=== PATIENT | female | born 1955 | race Hispanic/Latino ===

== ENCOUNTER 2016-07-17 10:30 | Inpatient (IN) | payer BC ==
[2016-07-17] MEDS ORDERED: ZOFRAN PO ONE ×2 (10:52→12:00)
[2016-07-17] MEDS ORDERED: ZOFRAN ODT ONE (10:55)
[2016-07-17 11:32] LABS: Basophils % (Auto) 0.2 % (0.0-1.8); Eosinophils % (Auto) 0.3 % (0.0-4.3); Hematocrit 43.9 % (30.3-42.9); Hemoglobin 15.2 gm/dl (10.1-14.3); Mean Corpuscular HGB Conc 35 % (30-34); Mean Corpuscular Hemoglobin 34 pg (28-32); Mean Corpuscular Volume 97 fl (79-97); Platelet Count 186 K/mm3 (140-440); Red Blood Count 4.52 M/mm3 (3.65-5.03); Red Cell Distribution Width 12.2 % (13.2-15.2); White Blood Count 3.8 K/mm3 (4.5-11.0)
[2016-07-17 11:36] LABS: Anion Gap 18 mmol/L; Blood Urea Nitrogen 14 mg/dL (7-17); Calcium 8.4 mg/dL (8.4-10.2); Carbon Dioxide 21 mmol/L (22-30); Chloride 101.1 mmol/L (98-107); Glucose 177 mg/dL (65-100); Potassium 4.3 mmol/L (3.6-5.0); Sodium 136 mmol/L (137-145)
--- NOTE | 2016-07-17 11:57 | Emergency Department Report ---
ED General Adult HPI - General Chief complaint: Dyspnea/Respdistress Stated complaint: TOBIAS Time Seen by Provider: 07/17/16 11:42 Source: patient Mode of arrival: Ambulatory Limitations: No Limitations - History of Present Illness Initial comments: Patient states that last night she measured her heart rate and found it to be 145 with her 's blood pressure and heart rate monitoring equipment. This morning her heart rate was normal but she felt short of breath nauseated and was concerned that she "might have a heart attack because women present atypically". She states that she has [facility] and no one on this side of town except sit. She sees a full stack net developer in [facility]. She states that she was taken off her medications for atrial fibrillation because "my heart rate plummeted". She is somewhat anxious at this time. She denies any recent travel, leg pain, swelling. She is not dyspneic at this time. She denies chest pain pressure or tightness. Patient states that she's never had a cardiac catheterization. However she's had no echocardiogram and a stress test last performed 2 years ago she states. -: Gradual Consistency: intermittent Improves with: none Worsens with: none Associated Symptoms: denies other symptoms Treatments Prior to Arrival: none - Related Data Home Medications Medication Instructions Recorded Confirmed Last Taken Sulindac 200 mg PO BID 01/23/15 07/17/16 07/16/16 hydrALAZINE [Apresoline] 50 mg PO BID 07/17/16 07/17/16 Unknown Previous Rx's Medication Instructions Recorded Last Taken Type Clopidogrel [Plavix] 75 mg PO QDAY tablet 01/24/15 07/16/16 Rx Losartan [Cozaar] 100 mg PO QDAY tablet 01/24/15 07/16/16 Rx Allergies Allergy/AdvReac Type Severity Reaction Status Date / Time Sulfa (Sulfonamide Allergy Rash Verified 01/23/15 21:33 Antibiotics) ED Review of Systems ROS: Stated complaint: TOBIAS Other details as noted in HPI Constitutional: denies: chills, fever Eyes: denies: eye pain, eye discharge, vision change ENT: denies: ear pain, throat pain Respiratory: shortness of breath. denies: cough, SOB at rest, wheezing Cardiovascular: denies: chest pain, palpitations Endocrine: no symptoms reported Gastrointestinal: nausea. denies: abdominal pain, diarrhea Genitourinary: denies: urgency, dysuria, discharge Musculoskeletal: denies: back pain, joint swelling, arthralgia Skin: denies: rash, lesions Neurological: denies: headache, weakness, paresthesias Psychiatric: denies: anxiety, depression Hematological/Lymphatic: denies: easy bleeding, easy bruising ED Past Medical Hx - Past Medical History Previous Medical History?: Yes Hx Hypertension: Yes Additional medical history: A. fib - Surgical History Past Surgical History?: Yes Additional Surgical History: hysterectomy - Social History Smoking Status: Former Smoker Substance Use Type: Prescribed - Medications Home Medications: Home Medications Medication Instructions Recorded Confirmed Last Taken Type Sulindac 200 mg PO BID 01/23/15 07/17/16 07/16/16 History Clopidogrel [Plavix] 75 mg PO QDAY tablet 01/24/15 07/17/16 07/16/16 Rx Losartan [Cozaar] 100 mg PO QDAY tablet 01/24/15 07/17/16 07/16/16 Rx hydrALAZINE [Apresoline] 50 mg PO BID 07/17/16 07/17/16 Unknown History ED Physical Exam - General Limitations: No Limitations General appearance: alert, in no apparent distress - Head Head exam: Present: atraumatic, normocephalic - Eye Eye exam: Present: normal appearance, EOMI. Absent: scleral icterus - ENT ENT exam: Present: mucous membranes moist - Neck Neck exam: Present: normal inspection - Respiratory Respiratory exam: Present: normal lung sounds bilaterally. Absent: respiratory distress - Cardiovascular Cardiovascular Exam: Present: regular rate, normal rhythm. Absent: systolic murmur, diastolic murmur, rubs, gallop - GI/Abdominal GI/Abdominal exam: Present: soft, normal bowel sounds. Absent: distended, tenderness, guarding, rebound, rigid, organomegaly, mass - Extremities Exam Extremities exam: Present: normal inspection, normal capillary refill. Absent: full ROM, tenderness, pedal edema, joint swelling, calf tenderness - Back Exam Back exam: Present: normal inspection - Neurological Exam Neurological exam: Present: alert, oriented X3, CN II-XII intact. Absent: motor sensory deficit - Psychiatric Psychiatric exam: Present: normal affect, normal mood - Skin Skin exam: Present: warm, dry, intact, normal color. Absent: rash ED Course Vital Signs 07/17/16 07/17/16 07/17/16 10:38 10:40 10:43 Temperature 97.5 F L Pulse Rate 60 Respiratory 18 Rate Blood Pressure 132/70 O2 Sat by Pulse 97 97 97 Oximetry 07/17/16 07/17/16 10:45 11:05 Temperature Pulse Rate 59 L 60 Respiratory 18 Rate Blood Pressure 132/70 O2 Sat by Pulse 96 Oximetry - Reevaluation(s) Reevaluation #1: Discussed with Dr. Conde. I added coags and a d-dimer. Patient will be admitted to the hospitalist service for further care and evaluation. 07/17/16 12:02 ED Medical Decision Making - Lab Data Result diagrams: 07/17/16 11:03 07/17/16 11:03 - EKG Data -: EKG Interpreted by Me EKG shows normal: sinus rhythm, axis, intervals, ST-T waves Rate: normal - EKG Data QS in V2. 07/17/16 12:04 Critical care attestation.: If time is entered above; I have spent that time in minutes in the direct care of this critically ill patient, excluding procedure time. ED Disposition Clinical Impression: AF (paroxysmal atrial fibrillation) Dyspnea Qualifiers: Dyspnea type: unspecified Qualified Code(s): R06.00 - Dyspnea, unspecified Disposition: OP ADMITTED IP TO THIS HOSP Is pt being admited?: Yes Does the pt Need Aspirin: Yes Condition: Stable Referrals: PRIMARY CARE,MD [Primary Care Provider] - 3-5 Days Time of Disposition: 12:06
[2016-07-17] MEDS ORDERED: BABY ASPIRIN PO ONE (12:06)
--- NOTE | 2016-07-17 12:14 | XRay Report ---
Single view chest: Compared to 01/23/15. History: Shortness of breath. Findings: Cardiomegaly. Trachea is midline. No consolidation, pneumothorax or pleural effusion. Impression: Cardiomegaly. No acute lung kidneys
[2016-07-17 12:42] LABS: Alanine Aminotransferase 17 units/L (7-56); Albumin 3.5 g/dL (3.9-5); Albumin/Globulin Ratio 1.3 %; Alkaline Phosphatase 68 units/L (35-129); Bilirubin,Direct < 0.2 mg/dL (0-0.2); Bilirubin,Total 0.5 mg/dL (0.1-1.2); Total Protein 6.3 g/dL (6.3-8.2)
[2016-07-17 12:46] LABS: INR 0.95 (0.87-1.13)
[2016-07-17 12:47] LABS: Partial Thromboplastin Time 32.4 Sec. (24.2-36.6)
--- NOTE | 2016-07-17 12:56 | History and Physical Report ---
History of Present Illness Date of examination: 07/17/16 History of present illness: Patient states that last night she measured her heart rate and found it to be 145 with her 's blood pressure and heart rate monitoring equipment. This morning her heart rate was normal but she felt short of breath nauseated and was concerned that she "might have a heart attack because women present atypically". She states that she has [facility] care and no one on this side of town except sit. She sees a sleeve setter in [facility]. She states that she was taken off her medications for atrial fibrillation because "my heart rate plummeted". She is somewhat anxious at this time. She denies any recent travel, leg pain, swelling. She is not dyspneic at this time. She denies chest pain pressure or tightness. Patient states that she's never had a cardiac catheterization. However she's had no echocardiogram and a stress test last performed 2 years ago she states. Past History Past Medical History: atrial fib, hypertension Medications and Allergies Allergies Allergy/AdvReac Type Severity Reaction Status Date / Time Sulfa (Sulfonamide Allergy Rash Verified 01/23/15 21:33 Antibiotics) Home Medications Medication Instructions Recorded Confirmed Last Taken Type Sulindac 200 mg PO BID 01/23/15 07/17/16 07/16/16 History Clopidogrel [Plavix] 75 mg PO QDAY tablet 01/24/15 07/17/16 07/16/16 Rx Losartan [Cozaar] 100 mg PO QDAY tablet 01/24/15 07/17/16 07/16/16 Rx hydrALAZINE [Apresoline] 50 mg PO BID 07/17/16 07/17/16 Unknown History Review of Systems Cardiovascular: chest pain, rapid/irregular heart beat Exam - Constitutional Vitals: Temp Pulse Resp BP Pulse Ox 97.5 F L 61 15 116/65 95 07/17/16 10:38 07/17/16 12:30 07/17/16 12:30 07/17/16 12:30 07/17/16 12:30 General appearance: Present: no acute distress - EENT Eyes: Present: PERRL, EOM intact ENT: hearing intact, clear oral mucosa - Neck Neck: Present: supple, normal ROM - Respiratory Respiratory effort: normal Respiratory: bilateral: CTA - Cardiovascular Rhythm: regular Heart Sounds: Present: S1 & S2 - Extremities Extremities: no ischemia, No edema - Abdominal General gastrointestinal: Present: soft, non-tender, non-distended, normal bowel sounds - Musculoskeletal Musculoskeletal: strength equal bilaterally - Psychiatric Psychiatric: appropriate mood/affect, intact judgment & insight - Neurologic Neurologic: CNII-XII intact, moves all extremities Results - Labs CBC & Chem 7: 07/17/16 11:03 07/17/16 11:03 Labs: Laboratory Last Values WBC 3.8 K/mm3 (4.5-11.0) L 07/17/16 11:03 RBC 4.52 M/mm3 (3.65-5.03) 07/17/16 11:03 Hgb 15.2 gm/dl (10.1-14.3) H 07/17/16 11:03 Hct 43.9 % (30.3-42.9) H 07/17/16 11:03 MCV 97 fl (79-97) 07/17/16 11:03 MCH 34 pg (28-32) H 07/17/16 11:03 MCHC 35 % (30-34) H 07/17/16 11:03 RDW 12.2 % (13.2-15.2) L 07/17/16 11:03 Plt Count 186 K/mm3 (140-440) 07/17/16 11:03 Lymph % (Auto) 28.0 % (13.4-35.0) 07/17/16 11:03 [place] % (Auto) 12.1 % (0.0-7.3) H 07/17/16 11:03 Eos % (Auto) 0.3 % (0.0-4.3) 07/17/16 11:03 Baso % (Auto) 0.2 % (0.0-1.8) 07/17/16 11:03 Lymph # 1.1 K/mm3 (1.2-5.4) L 07/17/16 11:03 [place] # 0.5 K/mm3 (0.0-0.8) 07/17/16 11:03 Eos # 0.0 K/mm3 (0.0-0.4) 07/17/16 11:03 Baso # 0.0 K/mm3 (0.0-0.1) 07/17/16 11:03 Seg Neutrophils % 59.4 % (40.0-70.0) 07/17/16 11:03 Seg Neutrophils # 2.2 K/mm3 (1.8-7.7) 07/17/16 11:03 PT 12.6 Sec. (12.2-14.9) 07/17/16 12:19 INR 0.95 (0.87-1.13) 07/17/16 12:19 APTT 32.4 Sec. (24.2-36.6) 07/17/16 12:19 Sodium 136 mmol/L (137-145) L 07/17/16 11:03 Potassium 4.3 mmol/L (3.6-5.0) 07/17/16 11:03 Chloride 101.1 mmol/L (98-107) 07/17/16 11:03 Carbon Dioxide 21 mmol/L (22-30) L 07/17/16 11:03 Anion Gap 18 mmol/L 07/17/16 11:03 BUN 14 mg/dL (7-17) 07/17/16 11:03 Creatinine 0.7 mg/dL (0.7-1.2) 07/17/16 11:03 Estimated GFR > 60 ml/min 07/17/16 11:03 BUN/Creatinine Ratio 20.00 % 07/17/16 11:03 Glucose 177 mg/dL (65-100) H 07/17/16 11:03 Calcium 8.4 mg/dL (8.4-10.2) 07/17/16 11:03 Total Bilirubin 0.5 mg/dL (0.1-1.2) 07/17/16 11:03 Direct Bilirubin < 0.2 mg/dL (0-0.2) 07/17/16 11:03 AST 22 units/L (5-40) 07/17/16 11:03 ALT 17 units/L (7-56) 07/17/16 11:03 Alkaline Phosphatase 68 units/L (35-129) 07/17/16 11:03 Troponin T < 0.010 ng/mL (0.00-0.029) 07/17/16 11:03 NT-Pro-B Natriuret Pep 414.5 pg/mL (0-900) 07/17/16 11:03 Total Protein 6.3 g/dL (6.3-8.2) 07/17/16 11:03 Albumin 3.5 g/dL (3.9-5) L 07/17/16 11:03 Albumin/Globulin Ratio 1.3 % 07/17/16 11:03 Assessment and Plan - Patient Problems (1) AF (paroxysmal atrial fibrillation) Current Visit: Yes Status: Chronic Plan to address problem: Normal sinus rhythm at this time, Cardiology consult, Follow TSH (2) Chest pain Current Visit: No Status: Acute Qualifiers: Chest pain type: C Plan to address problem: Cardiology consult, ASA, 2D Echo, Follow Troponin, Patient states that she can't take Beta-yogesh
[2016-07-17] MEDS ORDERED: SULINDAC 200 MG PO SCH (13:00)
[2016-07-17] MEDS ORDERED: PLAVIX PO SCH (13:00)
[2016-07-17] MEDS ORDERED: ZOFRAN IV PRN (13:01)
[2016-07-17] MEDS ORDERED: MILK OF MAGNESIA PO PRN (13:01)
[2016-07-17] MEDS ORDERED: DULCOLAX PR PRN (13:01)
[2016-07-17] MEDS ORDERED: PERCOCET 5/325 PO PRN (13:01)
[2016-07-17] MEDS ORDERED: TYLENOL PO PRN (13:01)
[2016-07-17] MEDS ORDERED: SODIUM CHLORIDE FLUSH SYRINGE 10 ML IV PRN (13:01)
--- NOTE | 2016-07-17 13:06 | Admit Criteria Form ---
Admission Criteria Documentation: CARDIOLOGY GRG Clinical Indications for Admission to Inpatient Care ( Place 'X' for any and all applicable criteria): Hospital admission is needed for appropriate care of the patient because of ANY ONE of the following (1): [ ] I. Hemodynamic instability as indicated by ALL of the following (1)(2)(3) (4)(5) [ ]a) Vital signs or other findings not as expected for chronic patient condition or baseline [ ]b) Instability indicated by ANY ONE of the following: [ ]i) Hypotension [ ]ii) Symptomatic Tachycardia unresponsive to treatment ( e.g., analgesia, fluids, sedation as indicated) [ ]iii) Inadequate perfusion indicated by ANY ONE of the following: [ ] 1) Lactic acidosis (> 2 mmol/L) [ ] 2) New abnormal capillary refill (> 3 seconds) [ ] 3) Reduced urine output [ ] 4) New altered mental status [ ]iv) Orthostatic vital sign changes unresponsive to treatment (e.g., fluids) [ ]v) IV inotropic or vasopressor medication required to maintain adequate blood pressure or perfusion [ ] II. Severe heart failure as indicated by ANY ONE of the following(17)(18) [ ]a) Respiratory distress [ ]b) Hypotension [ ]c) Anasarca (refractory to outpatient therapy) [ ]d) Cardiac arrhythmias of immediate concern [ ]e) Myocardial ischemia [ ] III. Cardiac arrhythmias or findings of immediate concern indicated by ANY ONE of the following (19)(20): [ ] a) Heart rhythms that are inherently dangerous or unstable indicated by ANY ONE of the following (21)(22)(23): [ ] i) Resuscitated ventricular fibrillation or cardiac arrest [ ] ii) Ventricular escape rhythm [ ] iii) Sustained ventricular tachycardia (30 seconds or more of ventricular rhythm at greater than 100 beats per minute) [ ] iv) Nonsustained ventricular tachycardia and ANY ONE of the following: [ ] 1) Suspected cardiac ischemia as cause or consequence of ventricular tachycardia [ ] 2) In setting of acute myocarditis [ ] b) Unstable cardiac conduction defects indicated by ANY ONE of the following(23)(24)(25) [ ] i) Type II second-degree atrioventricular block [ ]ii) Third-degree atrioventricular block [ ]iii) New-onset left bundle branch block with suspected myocardial ischemia [ ]c) Any heart rhythm and ANY ONE of the following (21)(22)(26)(27) (28) [ ] i) Continuous long-term ECG monitoring needed (e.g., initiation of drug requiring monitoring for more than 24 hours) [ ] ii) Patient has automatic implanted cardioverter defibrillator that is repeatedly firing, malfunctioning, or in need of immediate adjustment of settings beyond the scope of ambulatory or observation care [ ]d) Heart rhythms of concern due to ANY ONE of the following: [ ] i) Hypotension [ ] ii) Respiratory distress [ ] iii) Association with other significant symptoms (e.g., bradycardia with syncope or ongoing dizziness, supraventricular tachycardia with chest pain (14)(15)(17) [ ] IV. Monitoring for cardiac contusion beyond the scope of observation care needed [A](30)(31)(32) [ ] V. Surgical or device complication (e.g., valve replacement complication , pacemaker dysfunction) (35)(41)(44)(45)(46) [ ] . Inpatient palliative care needed. [B](49) Also use Inpatient Palliative Care Criteria [ ] VII. Nonbacterial thrombotic (marantic) endocarditis (36)(43)(47)(48) [X ] VIII. Cardiology condition, symptom, or finding for which emergency and observation care has failed or are not considered appropriate. [ ] IX. Acute valvular disease requiring inpatient as indicated by ANY ONE of the following (41) [ ]a) Acute valvular regurgitation (42) [ ]b) Noninfectious valvulitis (43) [ ]c) Obstructive valve thrombosis [ ]d) Paravalvular leak [ ]e) Other significant valvular disorder remaining after emergency or observation level of care (as appropriate) [ ]X. Pericardial disease requiring inpatient treatment as indicated by ANY ONE of the following (33)(34)(35)(36)(37) [ ]a) Suspected tamponade (38)(39)(40) [ ]b) Hemopericardium [ ]c) Other significant pericardial disorder remaining after emergency or observation level of care (as appropriate) [ ] XI. Cardiac ischemia beyond scope of emergency and observation care. [ ] XII. Hypertension requiring inpatient treatment as indicated by ANY ONE of the following (6)(7)(8) [ ]a) SBP greater than 220 mm Hg or DBP greater than 120 mmHg despite treatment [ ]b) SBP greater than 140 mm Hg or DBP greater than 100 mm Hg with evidence of acute end organ damage as indicated by ANY ONE of the following [ ] i) Altered mental status [ ] ii) Acute renal failure as indicated by new onset of ANY ONE of the following (9)(10)(11)(12)(13) [ ]1) 3-fold rise in serum creatinine from baseline [ ]2) Serum creatinine greater than 4 mg/dL ( 354 micromoles/L) with acute rise greater than 0.5 mg/dL (44.2 micromoles/L) [ ]3) Reduction of more than 75% in estimated glomerular filtration rate from baseline [ ]4) Estimated glomerular filtration rate less than 35 mL/min/1.73m2 (0.59 mL/sec/1.73m2) in child up to 18 years of age [ ]5) Cessation of urine output indicated by ALL of the following [ ]A. Adequate volume status [ ]B. Inadequate urine output as indicated by ANY ONE of the following [ ]a. Urine output less than 0.3 mL/kg/hr for 24 hours [ ]b. Anuria (urine output less than 0.1 mL/kg/hr) for 12 hours [ ] iii) Aortic dissection [ ] iv) Myocardial Ischemia [ ] v) Left ventricular heart failure [ ]vi) Retinal Hemorrhage [ ]vii) Other significant finding [ ]c) Hypertension in child requiring inpatient treatment as indicated by ALL of the following(14)(15)(16) [ ] i) Outpatient treatment not effective, not available, or not appropriate [ ]ii) SBP or DBP greater than 95th percentile for age [ ]iii) Evidence of acute end organ damage as indicated by ANY ONE of the following [ ]1) Altered mental status [ ]2) Acute renal failure as indicated by new onset of ANY ONE of the following(9)(10)(11)(12)(13) [ ]A. 3-fold rise in serum creatinine from baseline [ ]B. Serum creatinine greater than 4 mg/dL (354 micromoles/L) with acute rise greater than 0.5 mg/dL (44.2 micromoles/L) [ ]C. Reduction of more than 75% in estimated glomerular filtration rate from baseline [ ]D. Estimated glomerular filtration rate less than 35 mL/min/1.73m2 (0.59 mL/sec/1.73m2) in child up to 18 years of age [ ]E. Cessation of urine output indicated by ALL of the following [ ]a. Adequate volume status [ ]b. Inadequate urine output as indicated by ANY ONE of the following [ ]i) Urine output less than 0.3 mL/kg/hr for 24 hours [ ]ii) Anuria ( urine output less than 0.1 mL/kg/hr) for 12 hours [ ]3) Severe headache [ ]4) Visual disturbance [ ]5) Retinal hemorrhage [ ]6) Other significant finding [ ]XIII. Complications of transplanted heart indicated by ANY ONE of the following(61): [ ]a) Acute graft rejection requiring inpatient management (eg, intravenous immunosuppression)(62)(63) [ ]b) Acute graft heart failure indicated by ANY ONE of the following(64): [ ]i) Hemodynamic instability [ ]ii) Cardiac arrhythmias of immediate concern [ ]iii) Pulmonary edema that is very severe (eg, mechanical ventilation needed, imminent or likely, need for 100% oxygen to keep oxygen saturation above 90%) [ ]iv) Pulmonary edema that is persistent as indicated by ALL of the following: [ ]1) New need for oxygen therapy to keep oxygen saturation above 90% (or increased FiO2 need from baseline) [ ]2) Has not improved sufficiently with emergency department or observation care IV diuretics or other heart failure treatments[E] [ ]v) Altered mental status that is severe or persistent [ ]vi) Increased creatinine (new on laboratory test) with reduction of more than 50% in estimated glomerular filtration rate from baseline [ ]vii) Progressively (ongoing) rising creatinine (known from past laboratory test) with reduction of more than 25% in estimated glomerular filtration rate from baseline [ ]viii) Acute renal failure [ ]ix) Acute peripheral ischemia (eg, examination shows pulseless, cool, mottled, or cyanotic extremity) [ ]x) Pulmonary artery catheter monitoring needed [ ]xi) Other sign or symptom of heart failure requiring inpatient treatment (ie, too severe or not responsive to outpatient and observation care treatment) [ ]c) Infection requiring inpatient management (eg, Hemodynamic instability, need for intravenous antimicrobial treatment)(66)(67)(68)(69)(70) [ ]d) Cardiac allograft vasculopathy requiring inpatient management ( eg evidence of cardiac ischemia)(71) [ ]e) Other complication of transplanted heart (eg, stroke, severe pulmonary hypertension, severe valvular dysfunction) requiring inpatient management(72) The original [facility] [employer] content created by [facility] has been revised. The portions of the content which have been revised are identified through the use of italic text or in bold, and [facility] has neither reviewed nor approved the modified material. All other unmodified content is copyright [facility] [employer]. Please see references footnoted in the original [facility] [employer] edition 2016 Admission Criteria Met: Yes
[2016-07-17] MEDS: COZAAR PO SCH (13:53)
[2016-07-17] MEDS: APRESOLINE PO SCH ×2 (13:53→22:09)
[2016-07-17] MEDS ORDERED: NACL 0.9% 1000 ML 1,000 ML IV SCH (14:00)
[2016-07-17] MEDS ORDERED: LOVENOX SUB-Q SCH (14:00)
[2016-07-17 15:04] LABS: Creatine Kinase MB 1.4 ng/mL (0.0-4.0)
[2016-07-17 15:07] LABS: Creatine Kinase 41 units/L (30-135)
--- NOTE | 2016-07-17 15:13 | Consultation ---
History of Present Illness Consult date: 07/17/16 Consult reason: chest pain History of present illness: This is a 61yr old woman who reports a history of Hypertension and paroxysmal Atrial fibrillation on plavix therapy. Patient reports GI upset with aspirin. Anticoagulation with warfarin therapy was refused in the past. She has had extensive prior cardiac workup. In 2007, she underwent a cardiac cath that revealed normal coronaries, EF 50-55%. An echocardiogram done 2013 shows a normal LV systolic function, EF 60-65%. Patient was brought in by EMS now admitted with a suspected episode of paroxysmal atrial fibrillation. She reports has been taking antibiotics for several days for coughs and congestion. Shortly after waking up this morning patient reports dizziness and not being able to breath. She denies any chest pain. There was no syncope. Workup in the ED with a chest x-ray reports no acute process. Her presenting ECG shows a sinus rhythm with a first degree AV block. Cardiac consultation requested. Of note, patient reports last night she had an episode of palpitations that was short lived. She reports her hall manager recently took her off diltiazem and propanolol due to hypotension and severe bradycardia. Past History Past Medical History: atrial fib, hypertension Medications and Allergies Allergies Allergy/AdvReac Type Severity Reaction Status Date / Time Sulfa (Sulfonamide Allergy Rash Verified 01/23/15 21:33 Antibiotics) Home Medications Medication Instructions Recorded Confirmed Last Taken Type Sulindac 200 mg PO BID 01/23/15 07/17/16 07/16/16 History Clopidogrel [Plavix] 75 mg PO QDAY tablet 01/24/15 07/17/16 07/16/16 Rx Losartan [Cozaar] 100 mg PO QDAY tablet 01/24/15 07/17/16 07/16/16 Rx hydrALAZINE [Apresoline] 50 mg PO BID 07/17/16 07/17/16 Unknown History Active Meds: Active Medications Acetaminophen (Tylenol) 650 mg PO Q4H PRN PRN Reason: Pain MILD(1-3)/Fever >100.5/AVILA Aspirin (Ecotrin) 325 mg PO QDAY ANNE MARIE Bisacodyl (Dulcolax) 10 mg VT QDAY PRN PRN Reason: Constipation unrelieved by MOM Clopidogrel Bisulfate (Plavix) 75 mg PO QDAY [facility] Last Admin: 07/17/16 13:52 Dose: 75 mg Enoxaparin Sodium (Lovenox) 30 mg SUB-Q QDAY [facility] Last Admin: 07/17/16 13:54 Dose: 30 mg Hydralazine HCl (Apresoline) 50 mg PO BID [facility] Last Admin: 07/17/16 13:53 Dose: 50 mg Sodium Chloride (Nacl 0.9% 1000 Ml) 1,000 mls @ 100 mls/hr IV DIRECT [facility] Losartan Potassium (Cozaar) 100 mg PO QDAY [facility] Last Admin: 07/17/16 13:53 Dose: 100 mg Magnesium Hydroxide (Milk Of Magnesia) 30 ml PO Q4H PRN PRN Reason: Constipation Miscellaneous Medication (Sulindac [Sulindac]) 200 mg PO BID [facility] Last Admin: 07/17/16 13:29 Dose: Not Given Ondansetron HCl (Zofran) 4 mg IV Q8H PRN PRN Reason: N/V unrelieved by Reglan Oxycodone/Acetaminophen (Percocet 5/325) 1 tab PO Q6H PRN PRN Reason: Pain, Moderate (4-6) Sodium Chloride (Sodium Chloride Flush Syringe 10 Ml) 10 ml IV PRN PRN PRN Reason: LINE FLUSH Physical Examination Vital Signs Temp Pulse Resp BP Pulse Ox 97.5 F L 60 18 132/70 97 07/17/16 10:38 07/17/16 10:38 07/17/16 10:38 07/17/16 10:38 07/17/16 10:38 General appearance: no acute distress HEENT: Positive: PERRL Neck: Positive: trachea midline Cardiac: Positive: Reg Rate and Rhythm Lungs: Positive: Decreased Breath Sounds Neuro: Positive: Grossly Intact Extremities: Absent: edema Results 07/17/16 11:03 07/17/16 11:03 Cardiac Enzymes 07/17/16 Range/Units 13:58 CK-MB (CK-2) 1.4 (0.0-4.0) ng/mL Assessment and Plan Hx of Paroxysmal afib on plavix. Patient refused anticoagulation with warfarin in the past. Hypertension [facility] in 2007 revealed normal coronaries, EF 50-55%. An echocardiogram done 2013 shows a normal LV systolic function, EF 60-65%.
[2016-07-17 18:46] LABS: Creatine Kinase MB 1.4 ng/mL (0.0-4.0)
[2016-07-17 18:47] LABS: Creatine Kinase 40 units/L (30-135)
[2016-07-17 20:24] LABS: Creatine Kinase MB 1.3 ng/mL (0.0-4.0)
[2016-07-17 20:25] LABS: Creatine Kinase 38 units/L (30-135)
[2016-07-18 06:20] LABS: Hematocrit 39.8 % (30.3-42.9); Hemoglobin 13.5 gm/dl (10.1-14.3); Mean Corpuscular HGB Conc 34 % (30-34); Mean Corpuscular Hemoglobin 33 pg (28-32); Mean Corpuscular Volume 98 fl (79-97); Platelet Count 162 K/mm3 (140-440); Red Blood Count 4.05 M/mm3 (3.65-5.03); White Blood Count 4.1 K/mm3 (4.5-11.0)
[2016-07-18 07:11] LABS: Alanine Aminotransferase 16 units/L (7-56); Albumin 3.6 g/dL (3.9-5); Albumin/Globulin Ratio 1.6 %; Alkaline Phosphatase 60 units/L (35-129); BUN/Creatinine Ratio 21.25; Bilirubin,Total 0.4 mg/dL (0.1-1.2); Blood Urea Nitrogen 17 mg/dL (7-17); Calcium 8.3 mg/dL (8.4-10.2); Carbon Dioxide 28 mmol/L (22-30); Glucose 131 mg/dL (65-100); Potassium 4.6 mmol/L (3.6-5.0); Sodium 140 mmol/L (137-145); Total Protein 5.9 g/dL (6.3-8.2)
[2016-07-18 07:19] LABS: Anion Gap 16 mmol/L
[2016-07-18] MEDS ORDERED: LEXISCAN IV ONE ×2 (08:21→08:29)
[2016-07-18 08:48] LABS: Basophils % (Manual) 0 % (0.0-1.8); Blastocytes % (Manual) 0 %; Diff Status Complete; Eosinophils % (Manual) 0 % (0.0-4.3); RBC Morphology Normal
[2016-07-18] MEDS ORDERED: ECOTRIN PO SCH (10:00)
--- NOTE | 2016-07-18 10:51 | Treadmill Report ---
INDICATION: Chest pain. ORDERING PHYSICIAN: Zoie Roberts MD FINDINGS: There is no scintigraphic evidence of myocardial ischemia. The left ventricle is normal in size. There is normal wall motion and wall thickening noted on gated imaging. The left ventricular ejection fraction is measured at 52%. CONCLUSION: 1. This is a normal perfusion scan. 2. Normal left ventricular size and systolic function. 3. This is a low risk myocardial perfusion scan associated with 1 year mortality of less than 1%. [facility]# [id number] EULOGIO/LAN
--- NOTE | 2016-07-18 11:09 | Progress Note ---
Assessment and Plan Hx of Paroxysmal afib patient is agreeable to start coumadin therapy start warfarin 5 mg po daily discontinue asa and plavix follow-up INR testing on Thursday with PCP Hypertension Shortness of breath Normal MPI this admission [facility] in 2007 revealed normal coronaries, EF 50-55%. An echocardiogram done 2013 shows a normal LV systolic function, EF 60-65%. Recommendations: May go home cardiac carlos on warfarin 5 mg po daily Subjective Date of service: 07/18/16 Principal diagnosis: Shortness of breath Interval history: Patient underwent a lexiscan today - no complications Objective Vital Signs Temp Pulse Pulse Resp BP BP BP 07/18/16 04:35 98.2 F 66 16 132/62 07/18/16 00:59 18 07/18/16 00:30 98.7 F 68 18 124/70 07/17/16 22:47 07/17/16 20:35 98.9 F 65 18 128/65 07/17/16 20:10 82 07/17/16 16:07 97.7 F 79 70 16 07/17/16 15:27 97.5 F L 07/17/16 15:05 79 18 145/78 07/17/16 13:53 64 137/70 Pulse Ox 07/18/16 04:35 94 07/18/16 00:59 07/18/16 00:30 97 07/17/16 22:47 96 07/17/16 20:35 96 07/17/16 20:10 07/17/16 16:07 95 07/17/16 15:27 07/17/16 15:05 100 07/17/16 13:53 - Physical Examination HEENT: Positive: PERRL Neck: Positive: trachea midline Cardiac: Positive: Reg Rate and Rhythm Lungs: Positive: Normal Exam Neuro: Positive: Grossly Intact Extremities: Absent: edema - Labs and Meds Cardiac Enzymes 07/17/16 07/17/16 07/17/16 Range/Units 13:58 15:40 19:43 AST (5-40) units/L CK-MB (CK-2) 1.4 1.4 1.3 (0.0-4.0) ng/mL 07/18/16 Range/Units 04:54 AST 21 (5-40) units/L CK-MB (CK-2) (0.0-4.0) ng/mL Lipids 07/17/16 Range/Units 13:58 Triglycerides 93 (2-149) mg/dL Cholesterol 165 (50-199) mg/dL HDL Cholesterol 49 (40-59) mg/dL Cholesterol/HDL Ratio 3.36 % CBC 07/18/16 Range/Units 04:54 WBC 4.1 L (4.5-11.0) K/mm3 RBC 4.05 (3.65-5.03) M/mm3 Hgb 13.5 (10.1-14.3) gm/dl Hct 39.8 (30.3-42.9) % Plt Count 162 (140-440) K/mm3 Comprehensive Metabolic Panel 07/18/16 Range/Units 04:54 Sodium 140 (137-145) mmol/L Potassium 4.6 (3.6-5.0) mmol/L Chloride 101.0 (98-107) mmol/L Carbon Dioxide 28 D (22-30) mmol/L BUN 17 (7-17) mg/dL Creatinine 0.8 (0.7-1.2) mg/dL Glucose 131 H (65-100) mg/dL Calcium 8.3 L (8.4-10.2) mg/dL AST 21 (5-40) units/L ALT 16 (7-56) units/L Alkaline Phosphatase 60 (35-129) units/L Total Protein 5.9 L (6.3-8.2) g/dL Albumin 3.6 L (3.9-5) g/dL
[2016-07-18] MEDS: APRESOLINE PO SCH ×2 (12:04→21:47)
[2016-07-18] MEDS: COZAAR PO SCH (12:05)
[2016-07-18] MEDS: LOVENOX SUB-Q SCH (12:05)
--- NOTE | 2016-07-18 14:22 | Progress Note ---
Assessment and Plan Assessment and plan: --Atypical chest pain to rule out acute coronary syndrome Patient underwent stress test which is negative for reversible ischemia and preserved left ventricular function ejection fraction --Paroxysmal atrial fibrillation Moderate control, continue beta blockers, closely monitor, normal coronaries on heart cath in 2007 Normal left ventricular function with ejection fraction of 60-65% in 2013 --Chronic anticoagulation with Coumadin Daily monitoring of INR to therapeutic goal between 2 and 3 --Hypertension; Moderate control closely monitor blood pressure synergist medications as needed --Elevated D dimers We will check CT angiogram of the chest and lower extremity to rule out PE and DVT Patient is already on Coumadin --DC planning. Case management --CODE STATUS; full code Closely monitor the patient and adjust the management as needed Follow CT angiogram of the chest and lower extremities if negative and if patient is stable can be discharged home tomorrow Medical records reviewed, plan of care discussed with the patient family member at the bedside and her nurse History Interval history: Patient seen and evaluated medical records reviewed Denies any chest pain or shortness of breath Denies headache or dizziness Underwent nuclear stress test which was negative for reversible ischemia today. Cardiology cleared for discharge However patient has elevated d-dimer's, we will check CT angiogram of the chest to rule out PE and lower extremity DVT Patient is already on Coumadin Patient denies any chest pain or shortness of breath Alert awake oriented 3 not in acute distress Hospitalist Physical - Constitutional Vitals: Temp Pulse Resp BP Pulse Ox 98.2 F 67 16 115/80 94 07/18/16 04:35 07/18/16 08:54 07/18/16 04:35 07/18/16 12:05 07/18/16 04:35 General appearance: Present: no acute distress, well-nourished - EENT Eyes: Present: PERRL, EOM intact - Neck Neck: Present: supple, normal ROM - Respiratory Respiratory effort: normal Respiratory: negative: rales, rhonchi, wheezing - Cardiovascular Rhythm: regular Heart Sounds: Present: S1 & S2 - Extremities Extremities: no ischemia, pulses intact, pulses symmetrical Peripheral Pulses: within normal limits - Abdominal General gastrointestinal: soft, non-tender, non-distended, normal bowel sounds - Integumentary Integumentary: Present: clear, warm - Psychiatric Psychiatric: appropriate mood/affect, cooperative - Neurologic Neurologic: CNII-XII intact, moves all extremities Results - Labs CBC & Chem 7: 07/18/16 04:54 07/18/16 04:54 Labs: Laboratory Last Values WBC 4.1 K/mm3 (4.5-11.0) L 07/18/16 04:54 RBC 4.05 M/mm3 (3.65-5.03) 07/18/16 04:54 Hgb 13.5 gm/dl (10.1-14.3) 07/18/16 04:54 Hct 39.8 % (30.3-42.9) 07/18/16 04:54 MCV 98 fl (79-97) H 07/18/16 04:54 MCH 33 pg (28-32) H 07/18/16 04:54 MCHC 34 % (30-34) 07/18/16 04:54 RDW 12.0 % (13.2-15.2) L 07/18/16 04:54 Plt Count 162 K/mm3 (140-440) 07/18/16 04:54 Lymph % (Auto) 28.0 % (13.4-35.0) 07/17/16 11:03 [place] % (Auto) 12.1 % (0.0-7.3) H 07/17/16 11:03 Eos % (Auto) 0.3 % (0.0-4.3) 07/17/16 11:03 Baso % (Auto) 0.2 % (0.0-1.8) 07/17/16 11:03 Lymph # 1.1 K/mm3 (1.2-5.4) L 07/17/16 11:03 [place] # 0.5 K/mm3 (0.0-0.8) 07/17/16 11:03 Eos # 0.0 K/mm3 (0.0-0.4) 07/17/16 11:03 Baso # 0.0 K/mm3 (0.0-0.1) 07/17/16 11:03 Add Manual Diff Complete 07/18/16 04:54 Total Counted 100 07/18/16 04:54 Seg Neutrophils % Test Conductor 07/18/16 04:54 Seg Neuts % (Manual) 33.0 % (40.0-70.0) L 07/18/16 04:54 Band Neutrophils % 3.0 % 07/18/16 04:54 Lymphocytes % (Manual) 52.0 % (13.4-35.0) H 07/18/16 04:54 Reactive Lymphs % (Man) 5.0 % 07/18/16 04:54 Monocytes % (Manual) 7.0 % (0.0-7.3) 07/18/16 04:54 Eosinophils % (Manual) 0 % (0.0-4.3) 07/18/16 04:54 Basophils % (Manual) 0 % (0.0-1.8) 07/18/16 04:54 Metamyelocytes % 0 % 07/18/16 04:54 Myelocytes % 0 % 07/18/16 04:54 Promyelocytes % 0 % 07/18/16 04:54 Blast Cells % 0 % 07/18/16 04:54 Nucleated RBC % Not Reportable 07/18/16 04:54 Seg Neutrophils # 2.2 K/mm3 (1.8-7.7) 07/17/16 11:03 Seg Neutrophils # Man 1.4 K/mm3 (1.8-7.7) L 07/18/16 04:54 Band Neutrophils # 0.1 K/mm3 07/18/16 04:54 Lymphocytes # (Manual) 2.1 K/mm3 (1.2-5.4) 07/18/16 04:54 Abs React Lymphs (Man) 0.2 K/mm3 07/18/16 04:54 Monocytes # (Manual) 0.3 K/mm3 (0.0-0.8) 07/18/16 04:54 Eosinophils # (Manual) 0.0 K/mm3 (0.0-0.4) 07/18/16 04:54 Basophils # (Manual) 0.0 K/mm3 (0.0-0.1) 07/18/16 04:54 Metamyelocytes # 0.0 K/mm3 07/18/16 04:54 Myelocytes # 0.0 K/mm3 07/18/16 04:54 Promyelocytes # 0.0 K/mm3 07/18/16 04:54 Blast Cells # 0.0 K/mm3 07/18/16 04:54 WBC Morphology Not Reportable 07/18/16 04:54 Hypersegmented Neuts Not Reportable 07/18/16 04:54 Hyposegmented Neuts Not Reportable 07/18/16 04:54 Hypogranular Neuts Not Reportable 07/18/16 04:54 Smudge Cells Not Reportable 07/18/16 04:54 Toxic Granulation Not Reportable 07/18/16 04:54 Toxic Vacuolation Not Reportable 07/18/16 04:54 Dohle Bodies Not Reportable 07/18/16 04:54 Pelger-Huet Anomaly Not Reportable 07/18/16 04:54 Nathalie Rods Not Reportable 07/18/16 04:54 Platelet Estimate Appears normal 07/18/16 04:54 Clumped Platelets Not Reportable 07/18/16 04:54 Plt Clumps, EDTA Not Reportable 07/18/16 04:54 Large Platelets Not Reportable 07/18/16 04:54 Giant Platelets Not Reportable 07/18/16 04:54 Platelet Satelliting Not Reportable 07/18/16 04:54 Plt Morphology Comment Not Reportable 07/18/16 04:54 RBC Morphology Normal 07/18/16 04:54 Dimorphic RBCs Not Reportable 07/18/16 04:54 Polychromasia Not Reportable 07/18/16 04:54 Hypochromasia Not Reportable 07/18/16 04:54 Poikilocytosis Not Reportable 07/18/16 04:54 Anisocytosis Not Reportable 07/18/16 04:54 Microcytosis Not Reportable 07/18/16 04:54 Macrocytosis Not Reportable 07/18/16 04:54 Spherocytes Not Reportable 07/18/16 04:54 Pappenheimer Bodies Not Reportable 07/18/16 04:54 Sickle Cells Not Reportable 07/18/16 04:54 Target Cells Not Reportable 07/18/16 04:54 Tear Drop Cells Not Reportable 07/18/16 04:54 Ovalocytes Not Reportable 07/18/16 04:54 Helmet Cells Not Reportable 07/18/16 04:54 [place] Bodies Not Reportable 07/18/16 04:54 [place] Rings Not Reportable 07/18/16 04:54 [place] Cells Not Reportable 07/18/16 04:54 Bite Cells Not Reportable 07/18/16 04:54 Crenated Cell Not Reportable 07/18/16 04:54 Elliptocytes Not Reportable 07/18/16 04:54 Acanthocytes (Spur) Not Reportable 07/18/16 04:54 Rouleaux Not Reportable 07/18/16 04:54 Hemoglobin C Crystals Not Reportable 07/18/16 04:54 Schistocytes Not Reportable 07/18/16 04:54 Malaria parasites Not Reportable 07/18/16 04:54 Roger Bodies Not Reportable 07/18/16 04:54 Hem Pathologist Commnt No 07/18/16 04:54 PT 12.6 Sec. (12.2-14.9) 07/17/16 12:19 INR 0.95 (0.87-1.13) 07/17/16 12:19 APTT 32.4 Sec. (24.2-36.6) 07/17/16 12:19 D-Dimer 345.34 ng/mlDDU (0-234) H 07/17/16 12:19 Sodium 140 mmol/L (137-145) 07/18/16 04:54 Potassium 4.6 mmol/L (3.6-5.0) 07/18/16 04:54 Chloride 101.0 mmol/L (98-107) 07/18/16 04:54 Carbon Dioxide 28 mmol/L (22-30) D 07/18/16 04:54 Anion Gap 16 mmol/L 07/18/16 04:54 BUN 17 mg/dL (7-17) 07/18/16 04:54 Creatinine 0.8 mg/dL (0.7-1.2) 07/18/16 04:54 Estimated GFR > 60 ml/min 07/18/16 04:54 BUN/Creatinine Ratio 21.25 % 07/18/16 04:54 Glucose 131 mg/dL (65-100) H 07/18/16 04:54 Calcium 8.3 mg/dL (8.4-10.2) L 07/18/16 04:54 Total Bilirubin 0.4 mg/dL (0.1-1.2) 07/18/16 04:54 Direct Bilirubin < 0.2 mg/dL (0-0.2) 07/17/16 11:03 AST 21 units/L (5-40) 07/18/16 04:54 ALT 16 units/L (7-56) 07/18/16 04:54 Alkaline Phosphatase 60 units/L (35-129) 07/18/16 04:54 Total Creatine Kinase 38 units/L (30-135) 07/17/16 19:43 CK-MB (CK-2) 1.3 ng/mL (0.0-4.0) 07/17/16 19:43 CK-MB (CK-2) Rel Index 3.4 (0-4) 07/17/16 19:43 Troponin T < 0.010 ng/mL (0.00-0.029) 07/17/16 19:43 NT-Pro-B Natriuret Pep 414.5 pg/mL (0-900) 07/17/16 11:03 Total Protein 5.9 g/dL (6.3-8.2) L 07/18/16 04:54 Albumin 3.6 g/dL (3.9-5) L 07/18/16 04:54 Albumin/Globulin Ratio 1.6 % 07/18/16 04:54 Triglycerides 93 mg/dL (2-149) 07/17/16 13:58 Cholesterol 165 mg/dL (50-199) 07/17/16 13:58 LDL Cholesterol Direct 98 mg/dL (50-130) 07/17/16 13:58 HDL Cholesterol 49 mg/dL (40-59) 07/17/16 13:58 Cholesterol/HDL Ratio 3.36 % 07/17/16 13:58
[2016-07-18] MEDS ORDERED: COUMADIN PO SCH ×2 (17:00)
[2016-07-18] MEDS: COUMADIN PO SCH (18:14)
[2016-07-19 07:04] LABS: INR 0.94 (0.87-1.13)
[2016-07-19] MEDS ORDERED: NACL ONE (09:17)
--- NOTE | 2016-07-19 10:56 | Cat Scan Report ---
CTA chest: History: Elevated d-dimer. Rule out PE, DVT. Findings: No evidence of acute aneurysm or pulmonary embolism. No pleural or pericardial effusion. No mediastinal mass or adenopathy. Scarring/discoid atelectasis left lower lobe. No consolidation or mass. Impression: No evidence of pulmonary embolism. Scarring or discoid atelectasis left lower lobe
[2016-07-19] MEDS: APRESOLINE PO SCH (11:06)
[2016-07-19] MEDS: COZAAR PO SCH (11:07)
[2016-07-19] MEDS: LOVENOX SUB-Q SCH (11:08)
--- NOTE | 2016-07-19 12:50 | Progress Note ---
Assessment and Plan - Patient Problems (1) Chest pain Current Visit: No Status: Acute Qualifiers: Chest pain type: C Plan to address problem: Echocardiogram and thallium stress test were both negative. (2) AF (paroxysmal atrial fibrillation) Current Visit: Yes Status: Chronic Plan to address problem: Paroxysmal atrial fibrillation will be managed with AV rate control, and oral anticoagulation is initiated with Coumadin. Patient instructed to follow-up in 3-5 days for an INR check. Subjective Date of service: 07/19/16 Principal diagnosis: Shortness of breath Interval history: The patient's discharge was delayed due to recommendations for CT of the chest, and response to elevated d-dimer levels. No cardiac complaints, no dysrhythmias or recurrent atrial fibrillation. She has been started on Coumadin 5 mg daily. Objective Vital Signs Temp Pulse Pulse Pulse Resp BP BP 07/19/16 08:45 98.1 F 62 20 143/66 07/19/16 04:45 97.8 F 64 20 146/64 07/19/16 00:40 98.6 F 61 20 131/63 07/19/16 00:07 64 07/18/16 21:47 65 145/68 07/18/16 20:43 64 18 07/18/16 20:35 98.5 F 65 20 145/68 07/18/16 16:05 97.8 F 69 20 BP Pulse Ox 07/19/16 08:45 98 07/19/16 04:45 95 07/19/16 00:40 96 07/19/16 00:07 07/18/16 21:47 07/18/16 20:43 98 07/18/16 20:35 95 07/18/16 16:05 119/64 98 - Physical Examination General: Appears Well, No Apparent Distress HEENT: Positive: PERRL Neck: Positive: trachea midline Cardiac: Positive: Reg Rate and Rhythm Lungs: Positive: clear to auscultation Neuro: Positive: Grossly Intact Abdomen: Positive: Soft Skin: Positive: Clear Extremities: Absent: edema - Labs and Meds Coagulation 07/19/16 Range/Units 05:44 PT 12.5 (12.2-14.9) Sec. INR 0.94 (0.87-1.13)
--- NOTE | 2016-07-19 14:09 | Discharge Summary ---
Providers - Providers Date of Admission: 07/17/16 13:01 Date of discharge: 07/19/16 Attending physician: SUN CESAR Primary care physician: [employer] SPECIALIST Hospitalization Condition: Stable Disposition: DISCHARGED TO HOME OR SELFCARE Core Measure Documentation - Palliative Care Palliative Care/ Comfort Measures: Not Applicable - Core Measures Any of the following diagnoses?: none Exam - Constitutional Vitals: Temp Pulse Resp BP Pulse Ox 98.1 F 62 20 143/66 98 07/19/16 08:45 07/19/16 08:45 07/19/16 08:45 07/19/16 08:45 07/19/16 08:45 General appearance: Present: no acute distress, well-nourished, obese - EENT Eyes: Present: PERRL, EOM intact - Neck Neck: Present: supple, normal ROM - Respiratory Respiratory effort: normal Respiratory: negative: rales, rhonchi, wheezing - Cardiovascular Rhythm: regular Heart Sounds: Present: S1 & S2 - Extremities Extremities: no ischemia, pulses intact, pulses symmetrical Peripheral Pulses: within normal limits - Abdominal General gastrointestinal: Present: soft, non-tender, non-distended, normal bowel sounds - Integumentary Integumentary: Present: clear, warm - Musculoskeletal Musculoskeletal: strength equal bilaterally - Psychiatric Psychiatric: appropriate mood/affect, cooperative - Neurologic Neurologic: CNII-XII intact, moves all extremities Plan Activity: no restrictions Diet: other (cardiac diet) Additional Instructions: INR in 2-3 days at [facility] office. Target INR 2-3. If you notice any bleeding ,stop coumadin and contact MD Follow up with: BRITTANY RAGLAND MD [Primary Care Provider] - 3-5 Days JOHN MONTERROSO MD [Staff Physician] - 7 Days Forms: Warfarin Discharge Instruction Prescriptions: Warfarin [Coumadin] 5 mg PO DAILY@1700 #30 tablet
[2016-07-19] MEDS: COUMADIN PO SCH (17:11)
[2016-07-19 19:22] VITALS: BP 131/63
== END 2016-07-19 17:23 | disposition home or self-care (01) | DRG 310 ==
LOC: ED 10:30 → 4A 13:01
PROVIDERS: ADMIT Internal Medicine; ATTEND Internal Medicine
DX: I48.0 Paroxysmal atrial fibrillation (principal); R07.89 Other chest pain; I10 Essential (primary) hypertension; Z88.2 Allergy status to sulfonamides; Z90.710 Acquired absence of both cervix and uterus
CPT/HCPCS: 36415; 71010; 71275; 78452; 80048; 80053; 80061; 80074; 82550; 82553; 82962; 83880; 84484; 85007; 85025; 85379; 85610; 85730; 93005; 93010; 93017; 93306; 96372; A9502; J1650; J2785; Q0162; Q9967

== ENCOUNTER 2018-11-24 14:44 | Inpatient (IN) | payer MEDICARE ==
[2018-11-24] MEDS ORDERED: NITRO-BID 2% TP ONE (15:39)
--- NOTE | 2018-11-24 15:49 | Emergency Department Report ---
ED General Adult HPI - General Chief complaint: Chest Pain Stated complaint: CHEST PAIN Time Seen by Provider: 11/24/18 15:09 Source: patient Mode of arrival: Stretcher Limitations: No Limitations - History of Present Illness Initial comments: Patient presents to the emergency department with chief complaint of substernal chest pain that started at 2 PM today. The patient describes the chest pain as a tightness without radiation. Chest pain has now resolved. Patient denies any shortness of breath. Patient recently had a total right hip replacement and is on a Eliquis -: Sudden Location: chest Radiation: non-radiation Severity scale (0 -10): 5 Consistency: now resolved Improves with: none Worsens with: none Associated Symptoms: denies other symptoms Treatments Prior to Arrival: none - Related Data Home Medications Medication Instructions Recorded Confirmed Last Taken Sulindac 200 mg PO BID 01/23/15 07/17/16 07/16/16 hydrALAZINE [Apresoline TAB] 50 mg PO BID 07/17/16 07/17/16 Unknown Previous Rx's Medication Instructions Recorded Last Taken Type Losartan [Cozaar] 100 mg PO QDAY tablet 01/24/15 07/16/16 Rx Apixaban [Eliquis] 5 mg PO Q12HR tablet 09/06/17 Unknown Rx Pantoprazole [Protonix] 40 mg PO QDAY #30 tablet 09/06/17 Unknown Rx Allergies Allergy/AdvReac Type Severity Reaction Status Date / Time Sulfa (Sulfonamide Allergy Rash Verified 01/23/15 21:33 Antibiotics) ED Review of Systems ROS: Stated complaint: CHEST PAIN Other details as noted in HPI Comment: All other systems reviewed and negative Constitutional: denies: chills, fever Eyes: denies: eye pain, eye discharge, vision change ENT: denies: ear pain, throat pain Respiratory: denies: cough, shortness of breath, wheezing Cardiovascular: chest pain. denies: palpitations Endocrine: no symptoms reported Gastrointestinal: denies: abdominal pain, nausea, diarrhea Genitourinary: denies: urgency, dysuria, discharge Musculoskeletal: denies: back pain, joint swelling, arthralgia Skin: denies: rash, lesions Neurological: denies: headache, weakness, paresthesias Psychiatric: denies: anxiety, depression Hematological/Lymphatic: denies: easy bleeding, easy bruising ED Past Medical Hx - Past Medical History Hx Hypertension: Yes Additional medical history: A. fib - Surgical History Additional Surgical History: hysterectomy - Social History Smoking Status: Never Smoker Substance Use Type: None - Medications Home Medications: Home Medications Medication Instructions Recorded Confirmed Last Taken Type Sulindac 200 mg PO BID 01/23/15 07/17/16 07/16/16 History Losartan [Cozaar] 100 mg PO QDAY tablet 01/24/15 07/17/16 07/16/16 Rx hydrALAZINE [Apresoline TAB] 50 mg PO BID 07/17/16 07/17/16 Unknown History Apixaban [Eliquis] 5 mg PO Q12HR tablet 09/06/17 Unknown Rx Pantoprazole [Protonix] 40 mg PO QDAY #30 tablet 09/06/17 Unknown Rx ED Physical Exam - General Limitations: No Limitations General appearance: alert, in no apparent distress - Head Head exam: Present: atraumatic, normocephalic - Eye Eye exam: Present: normal appearance, PERRL, EOMI - ENT ENT exam: Present: mucous membranes moist - Neck Neck exam: Present: normal inspection - Respiratory Respiratory exam: Present: normal lung sounds bilaterally. Absent: respiratory distress - Cardiovascular Cardiovascular Exam: Present: regular rate, normal rhythm. Absent: systolic murmur, diastolic murmur, rubs, gallop - GI/Abdominal GI/Abdominal exam: Present: soft, normal bowel sounds. Absent: distended, tenderness - Extremities Exam Extremities exam: Present: normal inspection - Back Exam Back exam: Present: normal inspection - Neurological Exam Neurological exam: Present: alert, oriented X3, CN II-XII intact. Absent: motor sensory deficit - Psychiatric Psychiatric exam: Present: normal affect, normal mood - Skin Skin exam: Present: warm, dry, intact, normal color. Absent: rash ED Course Vital Signs 11/24/18 11/24/18 11/24/18 14:58 15:08 15:57 Temperature 98.3 F Pulse Rate 63 63 Respiratory 17 16 Rate Blood Pressure 187/62 Blood Pressure 187/62 [Left] O2 Sat by Pulse 96 Oximetry 11/24/18 11/24/18 11/24/18 16:30 17:00 17:46 Temperature Pulse Rate 64 60 56 L Respiratory 10 L 20 17 Rate Blood Pressure 160/89 145/57 145/57 Blood Pressure [Left] O2 Sat by Pulse 97 97 96 Oximetry ED Medical Decision Making - Lab Data Result diagrams: 11/24/18 15:47 11/24/18 15:47 - EKG Data -: EKG Interpreted by Me EKG shows normal: sinus rhythm Rate: normal - Radiology Data Radiology results: report reviewed - Medical Decision Making While in the ED the patient's chest pain returned Evaluation chest x-ray shows signs consistent with CHF and BNP was ordered and will be followed Critical care attestation.: If time is entered above; I have spent that time in minutes in the direct care of this critically ill patient, excluding procedure time. ED Disposition Clinical Impression: Chest pain Disposition: DC-09 OP ADMIT IP TO THIS HOSP Is pt being admited?: Yes Does the pt Need Aspirin: Yes Condition: Fair Instructions: Chest Pain (ED) Referrals: LINDA BORJAS MD [Primary Care Provider] - 3-5 Days
[2018-11-24 16:03] LABS: Basophils % (Auto) 0.2 % (0.0-1.8); Eosinophils # (Auto) 0.1 K/mm3 (0.0-0.4); Eosinophils % (Auto) 0.7 % (0.0-4.3); Hematocrit 37.7 % (30.3-42.9); Hemoglobin 12.9 gm/dl (10.1-14.3); Lymphocytes # (Auto) 1.1 K/mm3 (1.2-5.4); Lymphocytes % (Auto) 14.7 % (13.4-35.0); Mean Corpuscular HGB Conc 34 % (30-34); Mean Corpuscular Volume 99 fl (79-97); Monocytes # (Auto) 0.4 K/mm3 (0.0-0.8); Monocytes % (Auto) 5.1 % (0.0-7.3); Platelet Count 325 K/mm3 (140-440); Red Cell Distribution Width 12.9 % (13.2-15.2)
--- NOTE | 2018-11-24 16:13 | XRay Report ---
CHEST 1 VIEW INDICATION: Chest Pain. COMPARISON: None available. FINDINGS: Support devices: None. Heart: Upper limits of normal in size. Pulmonary vasculature: Indistinct vessels and mild central vascular congestion. Lungs/Pleura: Bilateral perihilar and basal reticular interstitial opacities. Mild blunting of the co stophrenic angles. Additional findings: None. IMPRESSION: CHF with mild interstitial pulmonary edema. Signer Name: Rajat Ndiaye MD Signed: 11/24/2018 4:08 PM Workstation Name: [id number]
[2018-11-24 16:14] LABS: INR 1.21 (0.87-1.13); Partial Thromboplastin Time 27.8 Sec. (24.2-36.6)
[2018-11-24 16:27] LABS: Alanine Aminotransferase 41 units/L (7-56); Albumin 3.8 g/dL (3.9-5); BUN/Creatinine Ratio 21; Blood Urea Nitrogen 17 mg/dL (7-17); Calcium 9.4 mg/dL (8.4-10.2); Hemolysis Index 2
[2018-11-24] MEDS ORDERED: CARAFATE ONE (17:49)
[2018-11-24] MEDS ORDERED: CARAFATE PO ONE (17:53)
[2018-11-24] MEDS ORDERED: BABY ASPIRIN PO ONE (18:20)
--- NOTE | 2018-11-24 18:27 | History and Physical Report ---
History of Present Illness Chief complaint: My chest is hurting History of present illness: 63 YO Female with Atrial Fib on Therapeutic Anticoagulation, HTN presents to ED for evaluation. Pt states that she has experienced pain in her chest for the past 1 day with worsening symptoms for the past 5 hours. Pain is 5-7/10, substernal, intermittent, nonradiating, crushing in nature, not worsened with exertion, or relieved with rest. Pt states that pain has resolved at time of exam. Pt acknowledges leg swelling, decreased exercise tolerance, dypsnea with exertion. Pt denies fever, chills, shortness of breath, NVD, Syncope, prolonged travel/immobility, unilateral leg swelling, individual/family history of DVT/PE, unintentional weight loss, night sweats. Pt seen and evaluated in ED and found to have Angina as well as symptoms consistent with CHF Decompensation. Pt admitted to telemetry. Cardiology consulted in ED. Past History Past Medical History: atrial fib, hypertension, other (Obesity) Past Surgical History: total hip replacement Social history: , lives with family. denies: smoking, alcohol abuse, prescription drug abuse Family history: hypertension Medications and Allergies Allergies Allergy/AdvReac Type Severity Reaction Status Date / Time Sulfa (Sulfonamide Allergy Rash Verified 01/23/15 21:33 Antibiotics) Home Medications Medication Instructions Recorded Confirmed Last Taken Type Sulindac 200 mg PO BID 01/23/15 07/17/16 07/16/16 History Losartan [Cozaar] 100 mg PO QDAY tablet 01/24/15 07/17/16 07/16/16 Rx hydrALAZINE [Apresoline TAB] 50 mg PO BID 07/17/16 07/17/16 Unknown History Apixaban [Eliquis] 5 mg PO Q12HR tablet 09/06/17 Unknown Rx Pantoprazole [Protonix] 40 mg PO QDAY #30 tablet 09/06/17 Unknown Rx Review of Systems Constitutional: no weight loss, no weight gain, no fever, no chills Ears, nose, mouth and throat: no ear pain, no ear discharge, no tinnitis, no decreased hearing, no nose pain, no sinus pressure Breasts: no change in shape, no swelling, no mass Cardiovascular: chest pain, palpitations, shortness of breath, dyspnea on exertion, leg edema, decreased exercise tolerance Respiratory: no cough, no cough with sputum, no excessive sputum, no hemoptysis Gastrointestinal: no nausea, no vomiting, no diarrhea, no constipation Genitourinary Female: no pelvic pain, no flank pain, no menorrhagia, no dysuria, no urinary frequency, no urgency Rectal: no pain, no incontinence, no bleeding Musculoskeletal: no neck stiffness, no neck pain, no shooting arm pain, no arm numbness/tingling, no low back pain Integumentary: no rash, no pruritis, no redness, no sores, no wounds Neurological: no paralysis, no weakness, no parathesias, no numbness, no ti ngling Psychiatric: no anxiety, no memory loss, no change in sleep habits, no sleep disturbances, no insomnia, no hypersomnia, no change in appetite Endocrine: no cold intolerance, no heat intolerance, no polyphagia, no excessive thirst, no polydipsia, no polyuria, no nocturia Hematologic/Lymphatic: no easy bruising, no easy bleeding, no lymphadenopathy, no lymphedema Allergic/Immunologic: no urticaria, no allergic rhinitis, no wheezing, no persistent infections, no anaphylaxis Exam - Constitutional Vitals: Temp Pulse Resp BP Pulse Ox 98.3 F 56 L 17 145/57 96 11/24/18 14:58 11/24/18 17:46 11/24/18 17:46 11/24/18 17:46 11/24/18 17:46 General appearance: Present: mild distress, obese - EENT Eyes: Present: PERRL ENT: hearing intact, clear oral mucosa - Neck Neck: Present: supple, normal ROM - Respiratory Respiratory effort: normal Respiratory: bilateral: CTA - Cardiovascular Rhythm: irregularly irregular Heart Sounds: Present: S1 & S2. Absent: rub, click - Extremities Extremities: pulses symmetrical Extremity abnormal: edema Peripheral Pulses: within normal limits - Abdominal General gastrointestinal: Present: soft, non-tender, non-distended, normal bowel sounds Female genitourinary: Present: normal - Integumentary Integumentary: Present: clear, warm, dry - Musculoskeletal Musculoskeletal: gait normal, strength equal bilaterally - Psychiatric Psychiatric: appropriate mood/affect, intact judgment & insight - Neurologic Neurologic: CNII-XII intact, moves all extremities Results - Labs CBC & Chem 7: 11/24/18 15:47 11/24/18 15:47 Labs: Abnormal lab results 11/24/18 11/24/18 11/24/18 Range/Units 15:47 15:47 15:47 MCV 99 H (79-97) fl MCH 34 H (28-32) pg RDW 12.9 L (13.2-15.2) % Lymph # 1.1 L (1.2-5.4) K/mm3 Seg Neutrophils % 79.3 H (40.0-70.0) % PT 15.0 H (12.2-14.9) Sec. INR 1.21 H (0.87-1.13) Potassium 3.5 L (3.6-5.0) mmol/L Glucose 118 H (65-100) mg/dL AST 91 H (5-40) units/L Alkaline Phosphatase 162 H (35-129) units/L Albumin 3.8 L (3.9-5) g/dL Assessment and Plan - Patient Problems (1) CHF (congestive heart failure) Current Visit: Yes Status: Acute Qualifiers: Heart failure type: systolic Heart failure chronicity: acute Qualified Code(s): I50.21 - Acute systolic (congestive) heart failure Plan to address problem: Admit to telemetry, chest x ray, supplemental oxygen, strict I/O, daily weight, echo, cardiology consulted, thyroid panel, magnesium, diuresis, BNP. (2) Angina at rest Current Visit: Yes Status: Acute (3) Atrial fibrillation Current Visit: Yes Status: Acute Qualifiers: Atrial fibrillation type: persistent Qualified Code(s): I48.1 - Persistent atrial fibrillation Plan to address problem: Admit to telemetry, continue therapeutic anticoagulation. (4) Hypokalemia Current Visit: Yes Status: Acute Plan to address problem: dietary supplementation, repeat bmp in am. (5) DVT prophylaxis Current Visit: Yes Status: Acute Plan to address problem: SCD to BLE while in bed, therapeutic anticoagulation.
[2018-11-24] MEDS ORDERED: PROVENTIL IH PRN (18:39)
[2018-11-24] MEDS ORDERED: TYLENOL PO PRN (18:39)
[2018-11-24] MEDS ORDERED: ZOFRAN IV PRN (18:39)
[2018-11-24] MEDS ORDERED: MORPHINE IV PRN (18:39)
[2018-11-24] MEDS ORDERED: SODIUM CHLORIDE FLUSH SYRINGE 10 ML IV PRN (18:39)
[2018-11-24 19:34] LABS: Free T4 (Free Thyroxine) 1.43 ng/dL (0.76-1.46)
[2018-11-24] MEDS: PEPCID PO SCH (22:50)
[2018-11-24] MEDS: SODIUM CHLORIDE FLUSH SYRINGE 10 ML IV SCH (22:50)
[2018-11-25 06:04] LABS: Alanine Aminotransferase 159 units/L (7-56); Albumin 3.7 g/dL (3.9-5); BUN/Creatinine Ratio 24; Blood Urea Nitrogen 17 mg/dL (7-17); Calcium 8.8 mg/dL (8.4-10.2); Hemolysis Index 10
[2018-11-25] MEDS: PEPCID PO SCH ×2 (10:02→22:49)
[2018-11-25] MEDS: LASIX IV SCH (10:03)
[2018-11-25] MEDS: SODIUM CHLORIDE FLUSH SYRINGE 10 ML IV SCH ×2 (10:05→22:50)
--- NOTE | 2018-11-25 10:09 | Consultation ---
History of Present Illness Consult date: 11/25/18 Consult reason: chest pain, congestive heart failure, shortness of breath History of present illness: This is a 63 year old woman with recent right hip surgery. She has a cardiac history of paroxysmal atrial fibrillation, on eliquis for oral anticoagulation therapy. There is no history of coronary artery disease. A cardiac catheterization in 2007 revealed normal coronary arteries. A year ago, she also had a negative stress test. An echocardiogram demonstrated well-preserved left ventricular systolic function, EF 55-60%. Patient presented with chest pain, shortness of breath that occurred suddenly yesterday with diaphoresis and dizziness. She denies palpitations. There was no loss of consciousness. Patient reports a home blood pressure systolic measurement of 198. EMS was called and the patient was brought in. In the emergency department, a chest x-ray done reports mild interstitial edema. Labs shows an elevated alkaline phosphatase. 12-lead ECG is sinus rhythm, no acute ischemic changes. Past History Past Medical History: atrial fib, hypertension, other (Obesity) Past Surgical History: total hip replacement Social history: , lives with family. denies: smoking, alcohol abuse, prescription drug abuse Family history: hypertension Medications and Allergies Allergies Allergy/AdvReac Type Severity Reaction Status Date / Time Sulfa (Sulfonamide Allergy Rash Verified 01/23/15 21:33 Antibiotics) Home Medications Medication Instructions Recorded Confirmed Last Taken Type Sulindac 200 mg PO BID 01/23/15 11/24/18 11/24/18 History Losartan [Cozaar] 100 mg PO QDAY tablet 01/24/15 11/24/18 11/24/18 Rx hydrALAZINE [Apresoline TAB] 50 mg PO BID 07/17/16 11/24/18 11/24/18 History Apixaban [Eliquis] 5 mg PO Q12HR tablet 09/06/17 11/24/18 11/24/18 Rx Pantoprazole [Protonix] 40 mg PO QDAY #30 tablet 09/06/17 11/24/18 Unknown Rx Calcium 600-Vit D3 800 Tablet 2 each PO QAM 11/24/18 11/24/18 11/24/18 History Gabapentin [Neurontin] 300 mg PO TID 11/24/18 11/24/18 Unknown History Gabapentin [Neurontin] 300 mg PO TID 11/24/18 11/24/18 11/23/18 History [place]-3S/Dha/Epa/Fish Oil/D3 [Fish 1 each PO DAILY 11/24/18 11/24/18 11/24/18 History Tow-Ivxvo-8-Vit D Softgel] Omeprazole 40 mg PO DAILY 11/24/18 11/24/18 11/24/18 History Sennosides/Docusate Sodium 1 tab PO Q8HR 11/24/18 11/24/18 Unknown History [Docusate Sodium-Senna Tablet] Sennosides/Docusate Sodium 2 each PO DAILY 11/24/18 11/24/18 11/23/18 History [Docusate Sodium-Senna Tablet] oxyCODONE [roxiCODONE] 1 tab PO Q4HR PRN 11/24/18 11/24/18 Unknown History oxyCODONE [roxiCODONE] 5 mg PO Q4HR PRN 11/24/18 11/24/18 11/23/18 History Active Meds: Active Medications Acetaminophen (Tylenol) 650 mg PO Q4H PRN PRN Reason: Pain MILD(1-3)/Fever >100.5/AVILA Albuterol (Proventil) 2.5 mg IH Q4HRT PRN PRN Reason: Shortness Of Breath Famotidine (Pepcid) 10 mg PO BID [facility] Last Admin: 11/24/18 22:50 Dose: 10 mg Documented by: Furosemide (Lasix) 20 mg IV QDAY [facility] Morphine Sulfate (Morphine) 2 mg IV Q4H PRN PRN Reason: Pain, Moderate (4-6) Ondansetron HCl (Zofran) 4 mg IV Q8H PRN PRN Reason: Nausea And Vomiting Sodium Chloride (Sodium Chloride Flush Syringe 10 Ml) 10 ml IV BID [facility] Last Admin: 11/24/18 22:50 Dose: 10 ml Documented by: Sodium Chloride (Sodium Chloride Flush Syringe 10 Ml) 10 ml IV PRN PRN PRN Reason: LINE FLUSH Physical Examination Vital Signs Temp Pulse Resp BP Pulse Ox 98.3 F 63 17 187/62 96 11/24/18 14:58 11/24/18 14:58 11/24/18 14:58 11/24/18 14:58 11/24/18 14:58 General appearance: no acute distress HEENT: Positive: PERRL Neck: Positive: trachea midline Cardiac: Positive: Reg Rate and Rhythm Lungs: Positive: Decreased Breath Sounds Neuro: Positive: Grossly Intact Extremities: Absent: edema Results 11/24/18 15:47 11/25/18 04:10 Cardiac Enzymes 11/24/18 11/25/18 Range/Units 15:47 04:10 AST 91 H 273 H (5-40) units/L Coagulation 11/24/18 Range/Units 15:47 PT 15.0 H (12.2-14.9) Sec. INR 1.21 H (0.87-1.13) APTT 27.8 (24.2-36.6) Sec. CBC 11/24/18 Range/Units 15:47 WBC 7.6 (4.5-11.0) K/mm3 RBC 3.80 (3.65-5.03) M/mm3 Hgb 12.9 (10.1-14.3) gm/dl Hct 37.7 (30.3-42.9) % Plt Count 325 (140-440) K/mm3 Lymph # 1.1 L (1.2-5.4) K/mm3 [place] # 0.4 (0.0-0.8) K/mm3 Eos # 0.1 (0.0-0.4) K/mm3 Baso # 0.0 (0.0-0.1) K/mm3 Comprehensive Metabolic Panel 11/24/18 11/25/18 Range/Units 15:47 04:10 Sodium 139 142 (137-145) mmol/L Potassium 3.5 L 3.9 (3.6-5.0) mmol/L Chloride 101.1 104.4 (98-107) mmol/L Carbon Dioxide 27 26 (22-30) mmol/L BUN 17 17 (7-17) mg/dL Creatinine 0.8 0.7 (0.7-1.2) mg/dL Glucose 118 H 124 H (65-100) mg/dL Calcium 9.4 8.8 (8.4-10.2) mg/dL AST 91 H 273 H (5-40) units/L ALT 41 159 H (7-56) units/L Alkaline Phosphatase 162 H 190 H (35-129) units/L Total Protein 6.8 6.3 (6.3-8.2) g/dL Albumin 3.8 L 3.7 L (3.9-5) g/dL Assessment and Plan Shortness of breath Elevated alkaline phosphatase Recent right hip surgery Paroxysmal atrial fibrillation on eliquis for oral anticoagulation therapy LHC in 2007 revealed normal coronary arteries. Negative stress test 09/2017. An echocardiogram demonstrated well-preserved left ventricular systolic function, EF 55-60% done 09/2017.
[2018-11-25] MEDS: COZAAR PO SCH (22:47)
[2018-11-25] MEDS: ELIQUIS PO SCH (22:50)
[2018-11-25] MEDS: SENOKOT S PO SCH (22:50)
[2018-11-25] MEDS: PROTONIX PO SCH (22:51)
[2018-11-25] MEDS: NEURONTIN PO SCH (22:51)
[2018-11-26] MEDS: SENOKOT S PO SCH (06:45)
[2018-11-26 08:48] LABS: Alanine Aminotransferase 99 units/L (7-56); Albumin 3.9 g/dL (3.9-5)
--- NOTE | 2018-11-26 08:52 | Discharge Summary ---
Providers - Providers Date of Admission: 11/24/18 18:39 Date of discharge: 11/26/18 Attending physician: ABHIJIT MOYA 11/24/18 18:44 Consult to Cardiology [CONS] Routine Consulting Provider: JOHN MONTERROSO Reason For Exam: chf Primary care physician: LINDA BORJAS Hospitalization Reason for admission: cp Condition: Fair Hospital course: 63 YO Female with Atrial Fib on Therapeutic Anticoagulation, HTN presented to ED for evaluation of pain in her chest for the past 1 day [employer]. Pain was 5-7/10, substernal, intermittent, nonradiating, crushing in nature, not worsened with exertion, or relieved with rest. Patient's pain resolved at the time of admission and had no further pain during the hospitalization. She is on oral anticoagulation with Eliquis. There has been extensive ischemic cardiac workup in the past several years including a normal cardiac catheterization in 2007, followed by multiple negative thallium stress tests most recently a year ago. Serial left ventricle function assessments have been normal, last echocardiogram done September 2017 was ejection fraction 55-60%. The patient was seen by cardiology in consultation who felt that patient's complaint was more epigastric discomfort which radiated to her lower chest. Cardiology felt that the patient's symptoms were atypical and did not represent acute coronary event. Also, patient was noted to have recent right hip surgery 2 weeks ago. Therefore, CTA PE protocol was ordered but the patient refused. The patient was noted to have elevated LFTs. Hepatitis panel along with abdominal ultrasound was ordered. The patient however refused the ultrasound as well. I explained to the patient that the tests were necessary in order to potentially diagnose life-threatening diseases. I discussed the risk including the patient refused. Patient threatened to sign out AMA on yesterday and is now refusing all tests. Therefore, patient will be discharged home. Dedicated discharge time 32 minutes. Disposition: -01 TO HOME OR SELFCARE Time spent for discharge: 32 - Discharge Diagnoses (1) Elevated LFTs Status: Acute (2) Atrial fibrillation Status: Acute Qualifiers: Atrial fibrillation type: persistent Qualified Code(s): I48.1 - Persistent atrial fibrillation (3) Chest pain Status: Acute Comment: likely due to paroxysmal afib with rapid rate normal cardiac enzymes (4) HTN (hypertension) Status: Acute Qualifiers: Hypertension type: essential hypertension Qualified Code(s): I10 - Essential (primary) hypertension Core Measure Documentation - Palliative Care Palliative Care/ Comfort Measures: Not Applicable - Core Measures Any of the following diagnoses?: none Exam - Constitutional Vitals: Temp Pulse Resp BP Pulse Ox 98.2 F 63 16 140/59 94 11/26/18 04:35 11/26/18 05:00 11/26/18 04:35 11/26/18 04:35 11/26/18 04:35 General appearance: Present: no acute distress, well-nourished - EENT Eyes: Present: PERRL ENT: hearing intact, clear oral mucosa - Neck Neck: Present: supple, normal ROM - Respiratory Respiratory effort: normal Respiratory: bilateral: CTA - Cardiovascular Heart Sounds: Present: S1 & S2. Absent: rub, click - Extremities Extremities: pulses symmetrical, No edema Peripheral Pulses: within normal limits - Abdominal General gastrointestinal: Present: soft, non-tender, non-distended, normal bowel sounds Female genitourinary: Present: normal - Integumentary Integumentary: Present: clear, warm, dry - Musculoskeletal Musculoskeletal: gait normal, strength equal bilaterally - Psychiatric Psychiatric: appropriate mood/affect, intact judgment & insight - Neurologic Neurologic: CNII-XII intact, moves all extremities Plan Activity: advance as tolerated Weight Bearing Status: Weight Bear as Tolerated Follow up with: LINDA BORJAS MD [Primary Care Provider] - 3-5 Days Forms: AMA Form
[2018-11-26 08:55] VITALS: BP 164/65
[2018-11-26 08:55] LABS: Bilirubin,Direct < 0.2 mg/dL (0-0.2)
[2018-11-26] MEDS ORDERED: APRESOLINE PO SCH (10:00)
[2018-11-26] MEDS ORDERED: COZAAR PO SCH (10:00)
[2018-11-26] MEDS ORDERED: CALTRATE PLUS PO SCH (10:00)
[2018-11-26] MEDS: COZAAR PO SCH (10:28)
[2018-11-26] MEDS: ELIQUIS PO SCH (10:29)
[2018-11-26] MEDS: PROTONIX PO SCH (10:29)
[2018-11-26] MEDS: NEURONTIN PO SCH (10:32)
[2018-11-26] MEDS: SODIUM CHLORIDE FLUSH SYRINGE 10 ML IV SCH (10:33)
[2018-11-26] MEDS: LASIX IV SCH (10:34)
[2018-11-26 12:02] LABS: Hepatitis B Surface Antigen Non-Reactive (Negative); Hepatitis C Virus Antibody Non-Reactive (NonReactive)
== END 2018-11-26 12:30 | disposition home health service (06) | DRG 308 ==
LOC: ED 14:44 → 4A 18:39
PROVIDERS: ADMIT Internal Medicine; ATTEND Hospitalist
DX: I48.1 Persistent atrial fibrillation (principal); I50.23 Acute on chronic systolic (congestive) heart failure; E87.6 Hypokalemia; I11.0 Hypertensive heart disease with heart failure; R79.89 Other specified abnormal findings of blood chemistry; Z96.641 Presence of right artificial hip joint; Z79.01 Long term (current) use of anticoagulants; Z82.49 Family history of ischemic heart disease and other diseases of the circulatory system; Z88.2 Allergy status to sulfonamides; Z88.8 Allergy status to other drugs, medicaments and biological substances; Z90.710 Acquired absence of both cervix and uterus
CPT/HCPCS: 36415; 71045; 80053; 80074; 80076; 83690; 83735; 83880; 84439; 84443; 84484; 85025; 85610; 85730; 93005; 93010; 94760; G0378; J1940

== ENCOUNTER 2021-10-29 07:21 | Day surgery (SDC) | payer MEDICARE ==
[2021-10-29] MEDS ORDERED: ASPIRIN EC 325 MG TAB PO SCH (08:30)
[2021-10-29 08:38] LABS: Basophils % (Auto) 0.3 % (0.0-1.8); Eosinophils # (Auto) 0.2 K/mm3 (0.0-0.4); Eosinophils % (Auto) 2.7 % (0.0-4.3); Hematocrit 36.5 % (30.3-42.9); Hemoglobin 12.8 gm/dl (10.1-14.3); Lymphocytes # (Auto) 1.5 K/mm3 (1.2-5.4); Lymphocytes % (Auto) 23.6 % (13.4-35.0); Mean Corpuscular HGB Conc 35 % (30-34); Mean Corpuscular Volume 99 fl (79-97); Monocytes # (Auto) 0.5 K/mm3 (0.0-0.8); Monocytes % (Auto) 8.4 % (0.0-7.3); Platelet Count 221 K/mm3 (140-440); Red Blood Count 3.69 M/mm3 (3.65-5.03); Red Cell Distribution Width 12.6 % (13.2-15.2)
[2021-10-29 08:48] LABS: INR 0.87 (0.87-1.13)
[2021-10-29 08:51] LABS: Calcium 9.2 mg/dL (8.4-10.2)
[2021-10-29] MEDS: SODIUM CHLORIDE 0.9% 500 ML 500 ML IV SCH ×3 (09:27→10:25)
[2021-10-29] MEDS: NITROGLYCERIN SYRINGE 3 ML ONE ×2 (10:14→10:30)
[2021-10-29] MEDS: HEPARIN/NS 5000 UNIT/500ML 1,000 ML IR ONE ×2 (10:15→10:35)
[2021-10-29] MEDS: MIDAZOLAM 2 MG/2 ML INJ ONE ×2 (10:17→10:26)
[2021-10-29] MEDS: HEPARIN 10,000 UNITS/10 ML VIAL ONE ×2 (10:18→10:30)
[2021-10-29] MEDS: LIDOCAINE (1%) 10 MG/1 ML VIAL 20 ML MDV ONE ×2 (10:18→10:28)
[2021-10-29] MEDS: fentaNYL 100 MCG/2 ML INJ ONE ×2 (10:18→10:27)
[2021-10-29] MEDS: VERAPAMIL 5 MG/2 ML INJ ONE ×2 (10:19→10:30)
--- NOTE | 2021-10-29 10:54 | Discharge Summary ---
Short Stay Discharge Plan Activity: advance as tolerated Weight Bearing Status: Full Weight Bearing Diet: low fat, low cholesterol, low salt Wound: keep clean and dry Special Instructions: smoking cessation, no heavy lifting (3 days) Follow up with: LINDA BORJAS MD [Primary Care Provider] - 7 Days
[2021-10-29] MEDS ORDERED: traMADol 50 MG TAB PO PRN (11:00)
[2021-10-29] MEDS ORDERED: SODIUM CHLORIDE 0.9% 1000 ML 1,000 ML IV SCH (11:00)
--- NOTE | 2021-10-29 11:27 | Cardiac Catherization Report ---
DATE OF SERVICE: 10/29/2021 CARDIAC CATHETERIZATION REPORT REASON FOR PROCEDURE: Abnormal thallium stress test. PROCEDURES: 1. Left heart catheterization. 2. Selective left and right coronary angiography. 3. Left ventricular angiography. 4. Sedation time start 10:27, end 10:40. DESCRIPTION OF PROCEDURE: The patient was prepped and draped in a sterile fashion after informed consent. The right radial cath site was prepped and draped after negative Momo's test. The right radial artery was entered using Seldinger technique followed by placement of a 6-Tajik hydrophilic sheath. Routine radial cocktail was administered via the sheath. Selective left and right coronary angiography was performed using a #3.5 left Mark and #4 right Mark. A pigtail catheter was used for left ventricular angiography. The catheters were then removed, sheath removed and hemostasis achieved using TR Band. The patient was returned to the postprocedure unit in stable condition. There were no complications. FINDINGS: HEMODYNAMICS: Left ventricular end-diastolic pressure was 30-34, following coronary angiography. Ascending aortic pressure was 140/60. There was no significant pressure gradient on pullback across the aortic valve. CORONARY ANGIOGRAPHY: The left main coronary artery was angiographically normal. The left anterior descending artery and its diagonal branches were angiographically normal. The circumflex artery and its obtuse marginal branches were angiographically normal. The right coronary artery was a large, dominant system, and also angiographically normal. Left ventricular systolic function was at the lower limits of normal with left ventricular ejection fraction 45%-50%. CONCLUSION: 1. Angiographically normal coronary arteries. 2. Left ventricular systolic function at the lower limits of normal, ejection fraction 45%-50%. RECOMMENDATIONS: Risk factor modification and medical therapy. TID: [id number] RECEIPT: [id number] CA/ALBAN
[2021-10-29 14:02] VITALS: BP 130/62
--- NOTE | 2021-10-30 09:37 | Electrocardiograph Report ---
[facility] Test Date: 2021-10-29 Test Time: 08:14:02 Pat Name: TARI FAUST Department: Room: Gender: F Art [employer] Supervisor: NIURKA : 1955 Requested By: JOHN MONTERROSO Order Number: [id number] Reading MD: Maurice Herzog Measurements Intervals Remer Rate: 60 P: RI: 180 QRS: 121 QRSD: 213 T: -8 QT: 549 QTc: 549 Interpretive Statements Atrial-ventricular dual-paced complexes Nonspecific intraventricular conduction delay Prolonged QT interval No previous ECG available for comparison Electronically Signed On 10-30-2021 9:36:19 EDT by Maurice Herzog
== END 2021-10-29 07:22 | disposition home or self-care (01) ==
LOC: CATHLABREC 07:21
PROVIDERS: ATTEND Internal Medicine Cardiovascular Disease
DX: R94.39 Abnormal result of other cardiovascular function study (principal); R06.00 Dyspnea, unspecified; I11.0 Hypertensive heart disease with heart failure; I50.9 Heart failure, unspecified; I20.8 Other forms of angina pectoris; I48.91 Unspecified atrial fibrillation; J45.909 Unspecified asthma, uncomplicated; Z87.440 Personal history of urinary (tract) infections; Z98.41 Cataract extraction status, right eye; Z98.42 Cataract extraction status, left eye; Z95.0 Presence of cardiac pacemaker; Z88.2 Allergy status to sulfonamides; Z79.899 Other long term (current) drug therapy; Z87.891 Personal history of nicotine dependence; Z98.890 Other specified postprocedural states; Z90.710 Acquired absence of both cervix and uterus; Z96.641 Presence of right artificial hip joint; Z82.49 Family history of ischemic heart disease and other diseases of the circulatory system
CPT/HCPCS: 36415; 80048; 85025; 85610; 85730; 93005; 93458; 99156; C1894; J1644; J1815; J2250; J3010; J7040; Q9967